=== PATIENT | male | born 1955 | race Caucasian/White ===

== ENCOUNTER → 2018-02-15 | Outpatient (CLI) | payer OTHER | LOC: BMCIMAGING 10:54 | PROVIDERS: ATTEND Internal Medicine Endocrinology, Diabetes & Metabolism | DX: Z13.820 Encounter for screening for osteoporosis (principal); E29.1 Testicular hypofunction; Z82.62 Family history of osteoporosis; Z96.642 Presence of left artificial hip joint; Z96.653 Presence of artificial knee joint, bilateral ==

== ENCOUNTER → 2018-02-20 | Outpatient (CLI) | payer OTHER ==
[~2018-02-20] MED LIST: IOPAMIDOL (ISOVUE 370) 100 ML BTL IV ONE; IOPAMIDOL (ISOVUE-300) 150 ML BTL ONE
== END ==
LOC: FIMAGING 08:30
PROVIDERS: ATTEND Urology
DX: R31.9 Hematuria, unspecified (principal); N28.1 Cyst of kidney, acquired; K59.00 Constipation, unspecified; J90 Pleural effusion, not elsewhere classified; J98.11 Atelectasis; M51.36 Other intervertebral disc degeneration, lumbar region; M41.86 Other forms of scoliosis, lumbar region
CPT/HCPCS: Q9967